=== PATIENT | female | born 1990 | race Hispanic/Latino ===

== ENCOUNTER 2018-10-11 07:11 | Inpatient (IN) | payer OTHER ==
[2018-10-11 07:28] VITALS: BMI 25.7
[2018-10-11] MEDS ORDERED: Lactated Ringer's 1,000 ML IV ONE (08:17)
[2018-10-11] MEDS ORDERED: Lactated Ringer's 1,000 ML IV SCH ×2 (08:30→09:17)
[2018-10-11 09:07] LABS: BASO % 0.6 % (0.0-2.0); EOS % 0.5 % (0.0-4.0); HEMOGLOBIN 12.3 g/dL (12.0-16.0); LYMPH # 1.7 K/uL (1.0-4.3); LYMPH % 25.4 % (20.0-40.0); MEAN CELL VOLUME 94.2 fl (81.0-99.0); MEAN CORPUSCULAR HEMOGLOBIN 31.7 pg (27.0-31.0); MEAN CORPUSCULAR HGB CONC 33.7 g/dL (33.0-37.0); MEAN PLATELET VOLUME 7.7 fl (7.2-11.7); MONO # 0.7 K/uL (0.0-0.8); MONO % 10.9 % (0.0-10.0); NEUT # 4.1 K/uL (1.8-7.0); NEUT % 62.6 % (50.0-75.0); RBC 3.86 Mil/uL (3.80-5.20); RED CELL DISTRIBUTION WIDTH 13.8 % (11.5-14.5); WHITE BLOOD COUNT 6.5 K/uL (4.8-10.8)
[2018-10-11] MEDS ORDERED: Bupivacaine HCl 0.5% PF (30 ml) Inj ONE (10:14)
[2018-10-11] MEDS ORDERED: Fentanyl/Bupivacaine HCl 250 ML EPI ONE (10:56)
[2018-10-11] MEDS ORDERED: Oxytocin 30 UNIT in NS 500 ml 30 UNITS/500 ML BAG IV ONE (12:33)
[2018-10-11] MEDS ORDERED: Benzocaine/Menthol SPRAY TOP PRN (15:11)
[2018-10-11] MEDS ORDERED: Oxycodone/Acetaminophen 5/325 mg Tab PO PRN ×4 (15:11→19:28)
--- NOTE | 2018-10-12 06:34 | OBDS ---
DELIVERY PERSONNEL Delivery Doctor: Debora Sinha .MD Coating Mixer Tender: Gely/Zach Anesthesiologist: SHARRON Fritz Resident: Dr Douglas(OB Fellow)/ Dr Ian Negro (resident) MATERNAL INFORMATION Delivery Anesthesia: Epidural Medications in Delivery: Pitocin Estimated Blood Loss (ml): 100 Placenta Cultured: No Maternal Complications: None Provider Comments: 28 year old at 39.0 weeks admitted for PROM. Patient progressed to normal spontaneous vaginal delivery of live male infact at 15:01 with no pit ocin augmentation, position JOSE over intact perineum with epidural anesthesia. Infant was placed on m aternal abdomen and delayed cord clamping was performed. Apgars 9_9, no excessive resuscitation requi red. No meconium or nuchal cord. Spontaneous delivery of placenta with 3-vessel cord. Vagina and farhat neum were intact. EBL 100cc. Mom and baby are in stable condition and will be recovered in L_D. Atten ding Dr. Sinha was present for delivery. Haydee Wren MD OB Fellow I agree with the note and I was present for the delivery LABOR SUMMARY EDC: 10/18/2018 00:00 No. Babies in Womb: 1 Attempted: No Labor Anesthesia: Epidural LABOR INFORMATION Reason for Induction: Not Applicable Onset of Labor: 10/11/2018 06:00 Complete Dilatation: 10/11/2018 14:30 Oxytocin: N/A Group B Beta Strep: Negative Antibiotics # of Doses: n/a Antibiotics Time of Last Dose: n/a Steroids Given: None Reason Steroids Not Administered: Not Applicable MEMBRANES Membranes Rupture Method: Spontaneous Rupture of Membranes: 10/11/2018 06:00 Length of Rupture (hrs): 9.10 Amniotic Fluid Color: Clear Amniotic Fluid Amount: Moderate Amniotic Fluid Odor: Normal STAGES OF LABOR Stage 1 hrs: 8 Stage 1 min: 30 Stage 2 hrs: 0 Stage 2 min: 36 Stage 3 hrs: 0 Stage 3 min: 6 Total Time in Labor hrs: 9 Total Time in Labor min: 12 VAGINAL DELIVERY Episiotomy: None Laceration Extension: N/A Laceration Type: None Laceration Repair: Not Applicable Initial Vag Sponge Count: laps=5 Final Vag Sponge Count: laps=5 Initial Vag Sharps Count: 0 Final Vag Sharps Count: 0 Sponge Count Correct: Yes Sharps Count Correct: N/A Count Comment: correct laps count BABY A INFORMATION Infant Delivery Date/Time: 10/11/2018 15:06 Method of Delivery: Vaginal Born in Route : No : N/A Forceps: N/A Vacuum Extraction: N/A Shoulder Dystocia : No SHOULDER DYSTOCIA BABY A Delivery Date/Time: 10/11/2018 15:06 PRESENTATION/POSITION BABY A Presentation: Cephalic Cephalic Presentation: Vertex Breech Presentation: N/A PLACENTA INFORMATION BABY A Placenta Delivery Time : 10/11/2018 15:12 Placenta Method of Delivery: Spontaneous Placenta Status: Delivered SCORES BABY A Heart Rate 1 min: >100 bpm Resp Effort 1 min: Good Cry Reflex Irritability 1 min: Cough or Sneeze or Pulls Away Muscle Tone 1 min: Active Motion Color 1 min: Body [place], Extremities Blue Resuscitation Effort 1 min: Tactile Stimulation SCORE 1 MIN: 9 Heart Rate 5 min: >100 bpm Resp Effort 5 min: Good Cry Reflex Irritability 5 min: Cough or Sneeze or Pulls Away Muscle Tone 5 min: Active Motion Color 5 min: Body [place], Extremities Blue Resuscitation Effort 5 min: N/A SCORE 5 MIN: 9 INFANT INFORMATION BABY A Gestational Age at Delivery: 39.0 Outcome : Liveborn Condition : Stable Infant Sex: Male IDENTIFICATION/MEDS BABY A ID Band Number: [id number] ID Band Location: Left Leg; Left Arm Vitamin K Given : Not Given Erythromycin Given: Not Given CORD INFORMATION BABY A No. Cord Vessels: 3 Nuchal Cord : Around Neck x1, Loose Nuchal Cord Other: n/a True Knot: n/a Cord pH Baby Arterial: n/a Infant Cord pH Baby Venous: n/a Cord Blood Taken: Yes Banking/Donate Info: n/a Suction: None ASSESSMENT BABY A Complications: None Physical Findings at Delivery: Within Normal Limits Infant Respirations: Appears Normal Biological Inspector/ALS Called : No Infant Care By: Gely Transferred To: Remains with Mother
[2018-10-12] MEDS: Multivitamin With Minerals Tab PO SCH (08:43)
[2018-10-12] MEDS: Benzocaine/Menthol SPRAY TOP PRN (08:44)
[2018-10-12] MEDS ORDERED: Multivitamin With Minerals Tab PO SCH (09:00)
[2018-10-13] MEDS: Multivitamin With Minerals Tab PO SCH (09:12)
[2018-10-13] MEDS: Benzocaine/Menthol SPRAY TOP PRN (09:13)
--- NOTE | 2018-10-13 11:57 | OBPPN ---
Datetime: 10/12/2018 11:50 PP Pain Prov: Within normal limits PP Nausea Prov: Denies PP Flatus Prov: Yes PP BM Prov: No PP Breasts Prov: Normal PP Heart Prov: Normal PP Lungs Prov: Normal PP Abdomen/Uterus Prov: Normal PP Lochia Prov: Normal PP Vulva/Perineum Prov: Normal PP CVA Tenderness Prov: Normal PP Extremities Prov: Not Done PP C/S Incision Prov: Not Applicable PP Progress Prov: Normal PP Comments Phys Exam Prov: Abdomen soft, nontender, nondistended Uterus firm, below umbilicus No deep calf tenderness bilaterally PP Impression Prov: Normal progression PP Plan Prov: Continue present management PP Progress Note Prov: day #1 status post . Patient recovering well CBC Regular diet Patient out of bed and ambulating Pain control Anticipate discharge home tomorrow IP PP Procedures: None Vital Signs Provider PP: Reviewed; Within Normal Limits
--- NOTE | 2018-10-13 12:08 | OBADHP ---
Datetime: 10/11/2018 11:07 Presentation-Admit: Vertex IP Fetus A Comments: Occasional variables FHR - Baseline A Provider: 120 Amniotic Fluid Color, Provider: Clear Membranes, Provider: Ruptured Contraction Comments Provider: Q3-4 min Gestation - Est Wks by US: 39.0 Vital Signs Provider: Reviewed; Within Normal Limits NICHD Variability Prov Fetus A: Moderate 6-25bpm NICHD Accel Fetus A IP Provider: [id number] FHR Category Provider Fetus A: Category II NICHD Decel Fetus A IP Provider: Variable Datetime: 10/11/2018 08:25 Comments, ACOG Physical Exam: PE Gen: NAD Chest: RRR S1S2 present Lungs: CTAB Abdomen: Gravid, soft, NT SVE: 3/80%/-3 SSE: Gross pooling noted. Ext: No edema, tenderness. Pool Provider: Positive IP Hx Assessment: The History has been Reviewed and is Current IP Chief Complaint: Suspected ruptured membranes Dilatation, Provider: 3 Effacement, Provider: 80 Station, Provider: -3 EGA AdmitDate IP: 39.0 IP Adm Impression: Term, intrauterine IP Admit Plan: Admit to unit Datetime: 10/11/2018 07:54 Admit Comment, IP Provider: 28 y/o , 39.0 wks based on LMP with SUKHWINDER 10/18/18 presents to [facility] wit h suspected ROM. 6 am today patient noticed gush of fluid coming out which increased upon standing. D enies VB, CTx. Endorses good movements. provider: Dr. Shelby, No complications so far in the except for amnioinfusion p er patient. PMHx: Denies PSHx: Denies Allergies:NKDA F/H: Mother: Breast Ca at 35 year SOcial Hx: Denies smoking/drugs/alcohol. PE Gen: NAD Chest: RRR S1S2 present Lungs: CTAB Abdomen: Gravid, soft, NT SVE: 3/80%/-3 SSE: Gross pooling noted. Ext: No edema, tenderness. A/P: 28 y/o , 39.0 wks based on LMP with SUKHWINDER 10/18/18 admitted for SROM. Gross pulling on exam . - [place] and EFM - 130 baseline, moderate variability, no decels - admit to unit for labor. case discussed with Dr. Ian Negro, PGY1 OB Hospitalist on-call...At 7:55am, I saw this patinet. Agree with note. KEN
--- NOTE | 2018-10-13 13:21 | OBDCSUM ---
Datetime: 10/13/2018 12:35 Discharged to, Provider: Home Follow up at, Provider: Janae Disch Instr Activity: Normal activity Disch Instr Diet: Regular Discharge Instructions, Provider: Routine instructions given Discharge Diagnosis, Provider: Term Delivered Discharge Time: 10/13/2018 12:36 Follow up in weeks, Provider: 6 weeks Disch Referrals: None Contraception discussed, Prov: Yes Disch Activity Restrictions: No exercising; No lifting; No sexual activity; Nothing in vagina - Inte rcourse, tampons, douche Contraception after Delivery: Undecided
--- NOTE | 2018-10-13 13:21 | OBPPN ---
Datetime: 10/13/2018 13:16 PP Pain Prov: Within normal limits PP Nausea Prov: Denies PP Flatus Prov: Yes PP Breasts Prov: Not Done PP Heart Prov: Normal PP Lungs Prov: Normal PP Abdomen/Uterus Prov: Normal PP Lochia Prov: Not Done PP Vulva/Perineum Prov: Not Done PP CVA Tenderness Prov: Normal PP Extremities Prov: Normal PP Impression Prov: Normal progression PP Plan Prov: Discharge PP Progress Note Prov: Patient doing well ambulating tolerating diet pain well controlled reports mi nimal lochia breast-feeding Vital signs stable afebrile Uterus firm below the umbilicus Extremities no Homans day #2 Discharge home, follow-up with PMD in 6 weeks Vital Signs Provider PP: Reviewed
[2018-10-13 17:44] VITALS: BP 99/66; PULSE 82; RESP 18; TEMP 98.4; O2SAT 99
== END 2018-10-13 13:20 | disposition home or self-care (01) | DRG 807 ==
LOC: H.EROB2 07:11 → H.L&D 08:17 → H.OB/GYN 19:15
PROVIDERS: ADMIT Obstetrics & Gynecology; ATTEND Obstetrics & Gynecology
PROC: 10E0XZZ Delivery of Products of Conception, External Approach (ICD-10-PCS; principal; 2018-10-11)
PROC: 4A1HXCZ Monitoring of Products of Conception, Cardiac Rate, External Approach (ICD-10-PCS; 2018-10-11)
DX: O69.81X0 Labor and delivery complicated by cord around neck, without compression, not applicable or unspecified (principal); Z37.0 Single live birth; Z3A.39 39 weeks gestation of pregnancy

== ENCOUNTER 2018-10-11 08:16 | Emergency (ER) | payer OTHER ==
[2018-10-11 07:28] VITALS: BMI 25.7
== END 2018-10-11 08:17 | disposition short-term general hospital (02) ==
LOC: H.ER 08:16
DX: O69.8 Labor and delivery complicated by other cord complications (principal); Z37.0 Single live birth; Z3A.39 39 weeks gestation of pregnancy